=== PATIENT | male | born 1970 | race Caucasian/White ===

== ENCOUNTER → 2017-11-30 | Outpatient (CLI) | payer OTHER ==
[~2017-11-30] MED LIST: AMIO200T42 PO; BISO10TA10 PO; FURO-92 PO; LOSA50TA7 PO; POTA8TAB6 PO; RIVA20TA PO
== END | disposition home or self-care (01) ==
LOC: CVU 09:58
PROVIDERS: ATTEND Internal Medicine Cardiovascular Disease
DX: I34.0 Nonrheumatic mitral (valve) insufficiency (principal); I10 Essential (primary) hypertension
CPT/HCPCS: 93306

== ENCOUNTER 2018-02-18 12:26 | Emergency (ER) | payer OTHER ==
[~2018-02-18] VITALS: Ht 182.9 cm; Wt 159.3 kg
--- NOTE | 2018-02-18 13:01 | NUR ---
MD AT BEDSIDE, FIRST CONTACT WITH PATIENT, PATIENT HAVING BLOOD IN URINE, SUPRA PUBIC CATHETER PLACED LAST . PATIENT TAKING XARELTO, HX A-FIB/CARDIAC ABLATION. AWAITING MD ORDERS, CALL LIGHT WITHIN REACH. FAMILY AT BEDSIDE. NAD NOTED.
--- NOTE | 2018-02-18 13:17 | NUR ---
LAB AT BEDSIDE.
[2018-02-18 13:27] LABS: BASOPHILS # (AUTO) 0.03 x10^3/uL (0-0.1); BASOPHILS % (AUTO) 0 % (0-1); EOSINOPHILS # (AUTO) 0.09 x10^3/uL (0-0.4); EOSINOPHILS % (AUTO) 1 % (1-7); LYMPHOCYTES # (AUTO) 1.16 x10^3/uL (1-3.4); LYMPHOCYTES % (AUTO) 9 % (22-44); MD NO; MEAN CORPUSCULAR HEMOGLOBIN 31.4 pg (27.5-34.5); MEAN CORPUSCULAR HGB CONC 33.6 g/dL (33.2-36.2); MEAN CORPUSCULAR VOLUME 93.5 fL (81-97); MEAN PLATELET VOLUME 8.2 fL (7.4-10.4); MONOCYTES # (AUTO) 0.45 x10^3/uL (0.2-0.8); MONOCYTES % (AUTO) 3 % (2-9); NEUTROPHILS % (AUTO) 87 % (42-75); PLATELET COUNT 404 x10^3/uL (130-400); RED BLOOD COUNT 4.71 x10^6/uL (4.38-5.82); RED CELL DISTRIBUTION WIDTH 13.2 % (9.4-14.8)
[2018-02-18 13:39] LABS: ALBUMIN 2.9 g/dL (3.4-5.0); ANION GAP 7 mmol/L (5-15); CALCIUM 8.6 mg/dL (8.5-10.1); CHLORIDE 103 mmol/L (98-107); CREATININE 1.22 mg/dL (0.7-1.3)
--- NOTE | 2018-02-18 13:46 | NUR ---
IRRIGATION COMPLETED, NO CLOTS NOTED. BLOOD TINGED URINE. UA COLLECTED FROM [place] PRIOR TO IRRIGATION, UA WALKED TO LAB.
[2018-02-18 14:10] VITALS: BP 131/100
--- NOTE | 2018-02-18 14:12 | NUR ---
TASK RN: FIRST CONTACT WITH PT. PT RESTING SITTING ON EDGE OF DORIANRKEITH. NADN. NO NEEDS EXPRESSED AT THIS TIME. PT IS HYPERTENSIVE AT 131/100 AND PULSE WAS 57. ED MD AWARE.
[2018-02-18 14:21] LABS: CULTURE INDICATED? YES; MICROSCOPIC INDICATED
--- NOTE | 2018-02-18 15:07 | NUR ---
RESULTS BACK, CHART UP FOR RECHECK.
--- NOTE | 2018-02-18 15:21 | NUR ---
Patient/Caregiver given discharge instructions and they have confirmed that they understand the instructions. Patient ambulatory with steady gait. Patient provided circus circus form per request.
[2018-02-19] MEDS ORDERED: MONT10TA9 PO (12:35)
[2018-02-19] MEDS ORDERED: METO25CA PO (12:35)
[2018-02-19] MEDS ORDERED: DILT120T3 PO (12:35)
[2018-02-19] MEDS ORDERED: COLC0.6T37 PO (12:35)
[2018-02-19] MEDS ORDERED: OXYC5CAP2 PO (12:35)
== END 2018-02-18 15:24 | disposition home or self-care (01) ==
LOC: ED 15:00
DX: R31.0 Gross hematuria (principal); I10 Essential (primary) hypertension; I48.91 Unspecified atrial fibrillation
CPT/HCPCS: 36415; 80048; 81001; 82040; 85025; 87077; 87086; 87186; 99283

== ENCOUNTER 2018-02-19 12:01 | Day surgery (SDC) | payer OTHER ==
[~2018-02-19] VITALS: Ht 182.9 cm; Wt 162.4 kg
[2018-02-19] MEDS ORDERED: OXYC5CAP2 PO (12:35)
[2018-02-19] MEDS ORDERED: METO25CA PO (12:35)
[2018-02-19] MEDS ORDERED: DILT120T3 PO (12:35)
[2018-02-19] MEDS ORDERED: COLC0.6T37 PO (12:35)
[2018-02-19] MEDS ORDERED: MONT10TA9 PO (12:35)
[2018-02-19 12:38] VITALS: BP 169/120
[2018-02-19] MEDS ORDERED: PROPOFOL 10 MG/ML, 20ML ONE (12:42)
[2018-02-19] MEDS ORDERED: ALBUTEROL/IPRATROPIUM 2.5MG/0.5MG, 3 ML NEB ONE (13:30)
== END 2018-02-19 14:11 | disposition home or self-care (01) ==
LOC: CACL 12:01
PROVIDERS: ATTEND Internal Medicine Cardiovascular Disease
DX: I48.91 Unspecified atrial fibrillation (principal); I34.0 Nonrheumatic mitral (valve) insufficiency; I10 Essential (primary) hypertension
CPT/HCPCS: 92960; 93312; 93325; 94640; J2704; J7620

== ENCOUNTER 2018-03-26 06:23 | Observation (INO) | payer OTHER ==
[~2018-03-26] VITALS: Ht 182.9 cm; Wt 158.0 kg
[~2018-03-26 06:23] MED LIST changes: +COLC0.6T37 PO; +DILT120T3 PO; +LOSA50TA14 PO; -LOSA50TA7 PO; +METO25CA PO; +MONT10TA9 PO; +OXYC5CAP2 PO
[2018-03-26] MEDS ORDERED: SODIUM CHLORIDE 0.9% 1,000 ML IV SCH (06:48)
[2018-03-26 06:49] VITALS: BP 134/90
[2018-03-26] MEDS ORDERED: PROPOFOL 50 ML ONE ×2 (07:42→08:52)
[2018-03-26] MEDS ORDERED: MIDAZOLAM 1 MG/ML, 2ML ONE (07:42)
[2018-03-26] MEDS ORDERED: FENTANYL PF 250 MCG/5ML ONE (07:42)
[2018-03-26] MEDS ORDERED: DEXAMETHASONE 4 MG/ML, 1ML ONE (08:18)
[2018-03-26] MEDS ORDERED: ONDANSETRON 2MG/ML, 2ML ONE (08:18)
[2018-03-26] MEDS ORDERED: SUCCINYLCHOLINE 20 MG/ML, 10ML ONE (08:18)
[2018-03-26] MEDS ORDERED: ROCURONIUM 10MG/ML,5ML ONE (08:18)
[2018-03-26] MEDS ORDERED: PROTAMINE SULFATE 10 MG/ML, 5ML ONE (09:40)
[2018-03-26] MEDS ORDERED: OXYcodone 5 MG/5 ML ORAL.SOL UDC ONE (10:21)
[2018-03-26] MEDS ORDERED: ACETAMINOPHEN 650 MG/20.3 ML UDC ONE (10:21)
[2018-03-26] MEDS ORDERED: MORPHINE SULFATE 4 MG/ML, 1ML IVPush PRN (10:30)
[2018-03-26] MEDS ORDERED: PROMETHAZINE 25 MG/ML, 1ML IV PRN (10:30)
[2018-03-26] MEDS ORDERED: PROMETHAZINE 12.5 MG SUPP PR PRN (10:30)
[2018-03-26] MEDS ORDERED: ONDANSETRON 2MG/ML, 2ML IV PRN (10:30)
[2018-03-26] MEDS ORDERED: ONDANSETRON ODT 8 MG PO PRN (10:30)
[2018-03-26] MEDS ORDERED: hydrALAzine 20 MG/ML, 1ML IV PRN (10:30)
[2018-03-26] MEDS ORDERED: MEPERIDINE/PF 25MG/0.5ML IVPush PRN (10:30)
[2018-03-26] MEDS ORDERED: FENTANYL PF 100 MCG/2ML IV PRN (10:30)
[2018-03-26] MEDS ORDERED: OXYcodone 5 MG/5 ML ORAL.SOL UDC PO PRN (10:30)
[2018-03-26] MEDS ORDERED: ACETAMINOPHEN 325 MG TABLET PO PRN (10:30)
[2018-03-26] MEDS ORDERED: EPHEDRINE 50 MG/ML, 1ML IVPush PRN (10:30)
[2018-03-26] MEDS ORDERED: DIPHENHYDRAMINE 50 MG/ML, 1ML IVPush PRN (10:30)
[2018-03-26] MEDS ORDERED: METOPROLOL 1 MG/ML, 5ML IV PRN (10:30)
[2018-03-26] MEDS ORDERED: PROMETHAZINE 25 MG SUPP PR PRN (10:30)
[2018-03-26] MEDS ORDERED: MIDAZOLAM 1 MG/ML, 2ML IV PRN (10:30)
[2018-03-26] MEDS ORDERED: EPHEDRINE 50 MG/ML, 1ML IM PRN (10:30)
[2018-03-26 13:29] VITALS: BP 127/86
[2018-03-26] MEDS: AMOXICILLIN 500 MG CAPSULE PO SCH ×2 (16:51→20:46)
[2018-03-26] MEDS ORDERED: RIVAROXABAN 20 MG TABLET PO SCH (18:00)
[2018-03-26 20:41] VITALS: BP 130/85
[2018-03-26] MEDS: AMIODARONE 200 MG TABLET PO SCH (20:46)
[2018-03-27 02:23] VITALS: BP 142/88
[2018-03-27] MEDS ORDERED: METOPROLOL SUCCINATE 25 MG TAB.ER.24H PO SCH (06:00)
[2018-03-27 07:46] VITALS: BP 144/94
[2018-03-27] MEDS ORDERED: FUROSEMIDE 40 MG TABLET PO SCH (09:00)
[2018-03-27] MEDS: AMIODARONE 200 MG TABLET PO SCH (09:00)
[2018-03-27] MEDS ORDERED: LOSARTAN 50MG TABLET PO SCH (09:00)
[2018-03-27] MEDS ORDERED: MONTELUKAST 10 MG TABLET PO SCH (09:00)
[2018-03-27] MEDS ORDERED: POTASSIUM CHLORIDE 8 MEQ TABLET.ER PO SCH (09:00)
[2018-03-27] MEDS ORDERED: AMIO200T42 PO (09:09)
[2018-03-27] MEDS: AMOXICILLIN 500 MG CAPSULE PO SCH (09:18)
== END 2018-03-27 10:00 | disposition home or self-care (01) ==
LOC: CACL 06:23 → ORIP 10:02 → 5SO 11:19 → DCLOUNGE 03-27 09:45
PROVIDERS: ADMIT Internal Medicine Cardiovascular Disease; ATTEND Internal Medicine Cardiovascular Disease
DX: I48.91 Unspecified atrial fibrillation (principal); I48.92 Unspecified atrial flutter; I45.9 Conduction disorder, unspecified; Z23 Encounter for immunization
CPT/HCPCS: 85347; 90471; 90656; 93308; 93321; 93325; 93613; 93655; 93656; 93662; C1730; C1731; C1732; C1759; C1766; C1893; C1894; G0378; J0330; J1100; J1642; J2250; J2405; J2704; J2720; J3010